=== PATIENT | male | born 2000 | race Caucasian/White ===

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

== ENCOUNTER 2023-08-27 11:31 | Emergency (ER) | payer BC ==
[~2023-08-27] VITALS: Ht 172.7 cm; Wt 113.4 kg
[2023-08-27 12:21] VITALS: BP_SYST 128; PULSE 98; RESP 16; TEMP 97.7; O2SAT 98
[2023-08-27 15:06] LABS: BASOPHILS % (AUTO) 0.6 % (0.0-2.0); EOSINOPHILS # (AUTO) 0.1 K/uL (0.0-0.4); EOSINOPHILS % (AUTO) 1.1 % (0.0-4.0); HEMATOCRIT 45.3 % (36-54); HEMOGLOBIN 15.8 g/dL (14.0-18.0); LYMPHOCYTES # (AUTO) 2.9 K/uL (1.0-5.5); LYMPHOCYTES % (AUTO) 36.8 % (20.5-51.5); MEAN CORPUSCULAR HEMOGLOBIN 29 pg (27-31); MEAN CORPUSCULAR HGB CONC 35 % (32-36); MEAN CORPUSCULAR VOLUME 82 fL (79.0-98.0); MONOCYTES # (AUTO) 0.9 K/uL (0.0-1.0); MONOCYTES % (AUTO) 10.9 % (1.7-9.3); NEUTROPHILS % (AUTO) 50.6 % (40.0-70.0); PLATELET COUNT (AUTO) 245 K/uL (130-430); RED BLOOD CELL COUNT(AUTO) 5.51 MIL/uL (4.2-6.2); RED CELL DISTRIBUTION WIDTH 13.6 % (9.0-15.0); WHITE BLOOD COUNT (AUTO) 7.9 K/uL (4.8-10.8)
[2023-08-27 15:23] LABS: ANION GAP 12 (5-15); CALCIUM 8.7 mg/dL (8.4-11.0); CARBON DIOXIDE 25 mmol/L (23-29); CHLORIDE 105 mmol/L (98-107); CREATININE 0.83 mg/dL (0.55-1.30); GFR AFRICAN AMERICAN 146 mL/min (>90); GLUCOSE 102 mg/dL (74-106); POTASSIUM 3.7 mmol/L (3.5-5.1); SODIUM SERUM 142 mmol/L (136-145); UREA NITROGEN, BLOOD 9 mg/dL (8-21)
[2023-08-27 15:25] LABS: GFR NON AFRICAN-AMERICAN 121 mL/min (>90)
[2023-08-27] MEDS ORDERED: ACYC-133 PO (15:35)
[2023-08-27] MEDS ORDERED: PRED20TA PO (15:35)
[2023-08-27 16:03] VITALS: BP_SYST 128; PULSE 98; RESP 16; TEMP 97.7; O2SAT 98
== END 2023-08-27 16:03 | disposition home or self-care (01) ==
LOC: SED 11:31
DX: G51.0 Bell's palsy (principal)
CPT/HCPCS: 36415; 70450-TC; 80048; 84484; 85025; 99284